=== PATIENT | female | born 1985 | race Two or more races ===

== ENCOUNTER 2018-10-17 09:52 | Outpatient (CLI) | payer OTHER | END 2018-10-17 09:57 | disposition home or self-care (01) | LOC: SONOGRAMA 09:52 | DX: E04.1 Nontoxic single thyroid nodule (principal) ==

== ENCOUNTER 2020-07-01 10:03 | Outpatient (CLI) | payer OTHER | END 2020-07-01 10:06 | disposition home or self-care (01) | LOC: SONOGRAMA 10:03 | PROVIDERS: ATTEND Pathology Anatomic Pathology & Clinical Pathology | DX: E04.1 Nontoxic single thyroid nodule (principal) ==

== ENCOUNTER 2023-11-19 09:02 | Outpatient (CLI) | payer OTHER | END 2023-11-19 09:04 | disposition home or self-care (01) | LOC: PRENATAL 09:02 | PROVIDERS: ATTEND Obstetrics & Gynecology Maternal & Fetal Medicine | DX: O35.3XX0 Maternal care for (suspected) damage to fetus from viral disease in mother, not applicable or unspecified (principal); O44.00 Complete placenta previa NOS or without hemorrhage, unspecified trimester; O34.40 Maternal care for other abnormalities of cervix, unspecified trimester; O09.529 Supervision of elderly multigravida, unspecified trimester; Z3A.19 19 weeks gestation of pregnancy ==

== ENCOUNTER → 2024-02-18 10:42 | Outpatient (CLI) | payer OTHER | END | disposition home or self-care (01) | LOC: PRENATAL 10:42 | PROVIDERS: ATTEND Obstetrics & Gynecology Maternal & Fetal Medicine | DX: O26.849 Uterine size-date discrepancy, unspecified trimester (principal); O36.8199 Decreased fetal movements, unspecified trimester, other fetus; O34.40 Maternal care for other abnormalities of cervix, unspecified trimester; O09.529 Supervision of elderly multigravida, unspecified trimester; Z3A.32 32 weeks gestation of pregnancy ==